=== PATIENT | male | born 1990 | race Caucasian/White ===

== ENCOUNTER 2021-07-10 11:23 | Emergency (ER) | payer BC ==
[2021-07-10] MEDS ORDERED: DOXYCYCLINE 100 MG CAP PO ONE (13:11)
--- NOTE | 2021-07-10 13:37 | RAD REPORT ---
EXAM DESCRIPTION: RAD - Hand Right 3 View - 07/10/2021 1:28 pm CLINICAL HISTORY: r/o fb;Pain, soft tissue injury, possible foreign body near the first metacarpal COMPARISON: No comparisons FINDINGS: No fracture is identified. There is no dislocation or periosteal reaction noted. There is a faint 2.5 millimeter rounded focus slightly more dense than the adjacent soft tissues. The nature of the possible foreign bodies not further delineated. The small rounded focus seen on this e xamination is not metal or mineralized. This is possibly a small skin flap if there is focal injury. IMPRESSION: No bone or joint abnormality of the right hand. Faint 2.5 mm rounded density at the skin surface first metatarsal region. This is only slightly more dense than adjacent soft tissues and could be a small skin flap from focal injury. No information was provided as to the nature of the possible foreign body.
--- NOTE | 2021-07-10 14:13 | ER ---
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 Rinsed and ll1 cleaned. Coronavirus screen: Vaccine status: Patient reports being unvaccinated. Client denies travel out of the [place] in the last 14 days. At this time, the client does not indicate any symptoms associated with coronavirus-19. Ebola Screen: Patient denies travel to an Ebola-affected area in the 21 days before illness onset. Initial Sepsis Screen: Does the patient meet any 2 criteria? HR > 90 bpm. No. Patient's initial sepsis screen is negative. Does the patient have a suspected source of infection? Yes: Skin breakdown/wound. Risk Assessment: Do you want to hurt yourself or someone else? Patient reports no desire to harm self or others. Onset of symptoms was July 10, 2021. 12:02 Method Of Arrival: Ambulatory ll1 12:02 Acuity: TERE 4 ll1 Historical: - Allergies: 12:04 No Known Allergies; ll1 - PMHx: 12:04 None; ll1 - PSHx: 12:04 None; ll1 - Immunization history:: Client reports having NOT received the Covid vaccine. Last tetanus immunization: up to date Flu vaccine is not up to date. - Social history:: Smoking status: Reported history of juuling and/or vaping. Screenin:10 Abuse screen: Denies threats or abuse. Nutritional screening: No deficits noted. vg1 Tuberculosis screening: No symptoms or risk factors identified. Fall Risk None identified. Assessment: 12:09 General: Appears in no apparent distress. comfortable, Behavior is calm, cooperative. vg1 Pain: Complains of pain in palmar aspect of proximal phalanx of right thumb Pain currently is 4 out of 10 on a pain scale. Pain began 3 hours ago. Neuro: Level of Consciousness is awake, alert, obeys commands, Oriented to person, place, time, situation. Cardiovascular: Patient's skin is warm and dry. Respiratory: Airway is patent Respiratory effort is even, unlabored. Derm: Skin is red, at injury site near Right thumb Skin temperature is warm at injury site near Right thumb. Musculoskeletal: Circulation, motion, and sensation intact. Swelling present in palmar aspect of proximal phalanx of right thumb. Injury Description: Puncture sustained to palmar aspect of proximal phalanx of right thumb. 12:18 Reassessment: Injured site near Right thumb has been cleaned with NS solution. vg1 13:44 Reassessment: Patient appears in no apparent distress at this time. No changes from vg1 previously documented assessment. Patient and/or family updated on plan of care and expected duration. Pain level reassessed. Patient is alert, oriented x 3, equal unlabored respirations, skin warm/dry/pink. 14:17 Reassessment: Patient appears in no apparent distress at this time. Patient and/or vg1 family updated on plan of care and expected duration. Pain level reassessed. Patient is alert, oriented x 3, equal unlabored respirations, skin warm/dry/pink. Patient denies pain at this time. Vital Signs: 12:02 BP 129 / 99; Pulse 98; Resp 16; Temp 97.9; Pulse Ox 100% ; Weight 81.65 kg; Height 5 ll1 ft. 9 in. (175.26 cm); Pain 6/10; 12:11 BP 129 / 90; Pulse 98; Resp 16; Pulse Ox 100% ; vg1 12:02 Body Mass Index 26.58 (81.65 kg, 175.26 cm) ll1 ED Course: 11:26 Patient arrived in ED. ds1 12:02 Arm band placed on. ll1 12:04 Triage completed. ll1 12:09 Lavern Roberson, RN is Primary Nurse. vg1 12:10 Patient has correct armband on for positive identification. Bed in low position. Call vg1 light in reach. 12:28 Guadalupe Reynoso FNP-C [facility]. kb 12:28 Wilmar Hurtado MD is Attending Physician. kb 13:28 Hand Right 3 View XRAY In Process Unspecified. EDMS 14:18 No provider procedures requiring assistance completed. Patient did not have IV access vg1 during this emergency room visit. Administered Medications: 12:55 Drug: Doxycycline 100 mg Route: PO; vg1 13:45 Follow up: Response: No adverse reaction vg1 Outcome: 14:12 Discharge ordered by MD. green 14:18 Discharged to home ambulatory. vg1 14:18 Condition: stable 14:18 Discharge instructions given to patient, Instructed on discharge instructions, follow up and referral plans. medication usage, Demonstrated understanding of instructions, follow-up care, medications, Prescriptions given X 1. 14:18 Patient left the ED. vg1 Signatures: Dispatcher [employer] EDKY Guadalupe Reynoso, JOSE CRUZ-C [employer]-Gloria Poe ds1 Lavern Roberson, RN RN vg1 Yaa Foley, ENOCH RN ll1 Corrections: (The following items were deleted from the chart) 12:18 12:09 Derm: Skin is pink, warm \T\ dry. vg1 vg1 12:18 12:09 Musculoskeletal: Circulation, motion, and sensation intact. vg1 vg1
--- NOTE | 2021-07-10 14:13 | EDPHYS ---
Physician Documentation [facility] Name: Konrad Richmond Age: 31 yrs Sex: Male : 1990 Arrival Date: 07/10/2021 Time: 11:26 Bed 10 Private MD: ED Physician Wilmar Hurtado HPI: 07/10 16:16 This 31 yrs old Male presents to ER via Ambulatory with complaints of Fish kb Sting. 16:16 The patient has a laceration related to: fishing occurred beach, and there are no kb complicating factors. The injury was accidental. The laceration(s) is(are) located on the palmar aspect of proximal phalanx of right thumb. Onset: The symptoms/episode began/occurred just prior to arrival. Associated signs and symptoms: The patient has no apparent associated signs or symptoms. The patient has not experienced similar symptoms in the past. The patient has not recently seen a physician. Pt was trying to take catfish off a hook and a diana went into his hand. Historical: - Allergies: 12:04 No Known Allergies; ll1 - PMHx: 12:04 None; ll1 - PSHx: 12:04 None; ll1 - Immunization history:: Client reports having NOT received the Covid vaccine. Last tetanus immunization: up to date Flu vaccine is not up to date. - Social history:: Smoking status: Reported history of juuling and/or vaping. ROS: 16:13 Constitutional: Negative for fever, chills, and weight loss. kb 16:13 Skin: Positive for puncture, of the palmar aspect of proximal phalanx of right thumb. 16:13 All other systems are negative. Exam: 16:13 Constitutional: This is a well developed, well nourished patient who is awake, alert, kb and in no acute distress. Head/Face: Normocephalic, atraumatic. ENT: Moist Mucous membranes Respiratory: Respirations even and unlabored. No increased work of breathing, no retractions or nasal flaring. MS/ Extremity: Pulses equal, no cyanosis. Neurovascular intact. Full, normal range of motion. Neuro: Awake and alert, GCS 15, oriented to person, place, time, and situation. Moves all extremities. Normal gait. Psych: Awake, alert, with orientation to person, place and time. Behavior, mood, and affect are within normal limits. 16:13 Skin: injury, puncture(s), that are superficial, of the palmar aspect of proximal phalanx of right thumb. Vital Signs: 12:02 BP 129 / 99; Pulse 98; Resp 16; Temp 97.9; Pulse Ox 100% ; Weight 81.65 kg; Height 5 ll1 ft. 9 in. (175.26 cm); Pain 6/10; 12:11 BP 129 / 90; Pulse 98; Resp 16; Pulse Ox 100% ; vg1 12:02 Body Mass Index 26.58 (81.65 kg, 175.26 cm) ll1 MDM: 12:28 Patient medically screened. kb 16:13 Data reviewed: vital signs, nurses notes. Data interpreted: Pulse oximetry: on room air kb is 100 %. Interpretation: normal. Counseling: I had a detailed discussion with the patient and/or guardian regarding: the historical points, exam findings, and any diagnostic results supporting the discharge/admit diagnosis, radiology results, the need for outpatient follow up, a family practitioner, to return to the emergency department if symptoms worsen or persist or if there are any questions or concerns that arise at home. 07/10 12:28 Order name: Hand Right 3 View XRAY; Complete Time: 13:43 kb Administered Medications: 12:55 Drug: Doxycycline 100 mg Route: PO; vg1 13:45 Follow up: Response: No adverse reaction vg1 Disposition: 07/11 08:13 Co-signature as Attending Physician, Wilmar Hurtado MD I agree with the assessment and sasha plan of care. Disposition Summary: 07/10/21 14:12 Discharge Ordered Location: Home kb Condition: Stable kb Diagnosis - Puncture wound without foreign body of right hand, initial encounter kb - Struck by other marine mammals, initial encounter kb Followup: kb - With: Emergency Department - When: As needed - Reason: Worsening of condition Followup: kb - With: Private Physician - When: 2 - 3 days - Reason: Recheck today's complaints, Continuance of care, Re-evaluation by your physician Discharge Instructions: - Discharge Summary Sheet kb - Puncture Wound, [id number] kb - Marine Life Injury, [id number] kb Forms: - Medication Reconciliation Form kb - Thank You Letter kb - Antibiotic Education kb - Prescription Opioid Use kb Prescriptions: - Doxycycline Hyclate 100 mg Oral Tablet - take 1 tablet by ORAL route every 12 hours; 20 tablet; Refills: 0, Product kb Selection Permitted Signatures: Dispatcher [employer] Guadalupe Webb, GIANNAC JOSE CRUZ-Wilmar Jefferson MD MD cha Garcia, Victoria RN RN vg1 Yaa Foley RN RN ll1
[2021-07-10 14:38] VITALS: TEMP 97.9; O2SAT 100
[2021-07-10 14:39] VITALS: BP 129/90
== END 2021-07-10 14:18 | disposition home or self-care (01) ==
LOC: ER 11:23
DX: S61.031A Puncture wound without foreign body of right thumb without damage to nail, initial encounter (principal); W56.52XA Struck by other fish, initial encounter
CPT/HCPCS: 99283